=== PATIENT | male | born 1935 | race Caucasian/White ===

== ENCOUNTER 2018-07-02 09:25 | Emergency (ER) | payer MEDICARE, OTHER ==
[~2018-07-02] VITALS: Ht 653.8 cm; Wt 55.0 kg
[2018-07-02 09:51] LABS: BASOPHILS % (AUTO) 0.4 % (0-1); EOSINOPHILS # (AUTO) 1.7 X10'3 (0-0.9); EOSINOPHILS % (AUTO) 22.9 % (0-6); HEMATOCRIT 41.1 % (42.0-52.0); HEMOGLOBIN 13.7 g/dl (14.0-17.9); LYMPHOCYTES # (AUTO) 1.1 X10'3 (1.1-4.8); LYMPHOCYTES % (AUTO) 14.4 % (21-51); MEAN CORPUSCULAR HEMOGLOBIN 31.1 PG (27.0-31.0); MEAN CORPUSCULAR HGB CONC 33.2 % (33.0-36.5); MEAN CORPUSCULAR VOLUME 93.7 FL (78-98); MEAN PLATELET VOLUME 7.2 FL (7.4-10.4); MONOCYTES # (AUTO) 0.5 X10'3 (0-0.9); MONOCYTES % (AUTO) 7.1 % (2-12); NEUTROPHILS # (AUTO) 4.1 X10'3 (1.8-7.7); NEUTROPHILS % (AUTO) 55.2 % (42-75); PLATELET COUNT 304 X10'3 (140-440); RED BLOOD COUNT 4.39 X10'6 (4.70-6.10); WHITE BLOOD COUNT 7.4 X10'3 (4.5-11.0)
[2018-07-02 10:01] LABS: PARTIAL THROMBOPLASTIN TIME 25 SECONDS (22-32); PROTHROMBIN TIME 10.2 SECONDS (9.0-12.0)
[2018-07-02 10:07] LABS: ALANINE AMINOTRANSFERASE 174 U/L (12-78); ALBUMIN 3.1 G/DL (3.4-5.0); ALBUMIN/GLOBULIN RATIO 0.8 (1.1-1.5); ALKALINE PHOSPHATASE 96 IU/L (46-116); ANION GAP 9 (8-16); ASPARTATE AMINO TRANSFERASE 177 U/L (10-37); BILIRUBIN,TOTAL 0.4 MG/DL (0.1-1.0); BLOOD UREA NITROGEN 17 MG/DL (7-18); BUN/CREATININE RATIO 11.9 (5.4-32.0); CALCIUM 9.5 MG/DL (8.5-10.1); CHLORIDE 106 MMOL/L (99-107); CREATININE 1.43 MG/DL (0.60-1.10); GLUCOSE 123 MG/DL (70-104); POTASSIUM 4.1 MMOL/L (3.5-5.1); SODIUM 142 MMOL/L (135-145); TOTAL CARBON DIOXIDE 26.7 MMOL/L (24-32); TOTAL PROTEIN 6.9 G/DL (6.4-8.2); eGFR 47 ML/MIN
[2018-07-02 14:42] VITALS: BP 105/57
== END 2018-07-02 14:44 | disposition home or self-care (01) ==
LOC: ER 09:25
DX: J93.83 Other pneumothorax (principal); Z95.810 Presence of automatic (implantable) cardiac defibrillator
CPT/HCPCS: 36415; 71045; 80053; 83880; 84484; 85025; 85610; 85730; 93005; 99285

== ENCOUNTER 2021-09-10 11:27 | Day surgery (SDC) | payer OTHER ==
[2021-09-05 10:45] LABS: EOSINOPHILS # (AUTO) 0.1 X10'3 (0-0.9); EOSINOPHILS % (AUTO) 2.3 % (0-6); HEMATOCRIT 36.6 % (42.0-52.0); HEMOGLOBIN 12.3 g/dl (14.0-17.9); LYMPHOCYTES # (AUTO) 1.2 X10'3 (1.1-4.8); MEAN CORPUSCULAR HEMOGLOBIN 31.9 PG (27.0-31.0); MEAN CORPUSCULAR HGB CONC 33.5 g/dL (33.0-36.5); MEAN CORPUSCULAR VOLUME 95.2 FL (78-98); MEAN PLATELET VOLUME 6.9 FL (7.4-10.4); MONOCYTES # (AUTO) 0.8 X10'3 (0-0.9); MONOCYTES % (AUTO) 16.5 % (2-12); NEUTROPHILS # (AUTO) 2.6 X10'3 (1.8-7.7); NEUTROPHILS % (AUTO) 54.2 % (42-75); PLATELET COUNT 258 X10'3 (140-440); RED BLOOD COUNT 3.85 X10'6 (4.70-6.10); RED CELL DISTRIBUTION WIDTH 13.2 % (11.5-14.5); WHITE BLOOD COUNT 4.8 X10'3 (4.5-11.0)
[2021-09-05 10:53] LABS: ALBUMIN 3.5 G/DL (3.4-5.0); ANION GAP 9 (8-16); BLOOD UREA NITROGEN 31 MG/DL (7-18); BUN/CREATININE RATIO 15.8 (5.4-32.0); CALCIUM 8.6 MG/DL (8.5-10.1); CHLORIDE 110 MMOL/L (99-107); CREATININE 1.96 MG/DL (0.60-1.10); GLUCOSE 97 MG/DL (70-104); POTASSIUM 4.7 MMOL/L (3.5-5.1); SODIUM 140 MMOL/L (135-145); TOTAL CARBON DIOXIDE 21.1 MMOL/L (24-32); eGFR 33 ML/MIN
[2021-09-05 10:55] LABS: PARTIAL THROMBOPLASTIN TIME 28 SECONDS (22-32)
[2021-09-05 11:22] LABS: PLATELET ESTIMATE NORMAL; TOTAL CELLS COUNTED 100
[~2021-09-10] VITALS: Ht 200.7 cm; Wt 77.1 kg
[2021-09-10] VITALS (10 sets, daily range): BP systolic 90–121; BP diastolic 51–80
[2021-09-10] MEDS ORDERED: diphenhydrAMINE 25mg capsule PO PRN (11:55)
[2021-09-10] MEDS ORDERED: normal saline 1,000 ML IV SCH (11:55)
[2021-09-10] MEDS ORDERED: LORazepam 0.5 MG tablet PO PRN (11:55)
[2021-09-10] MEDS ORDERED: BUPR-122 PO (12:04)
[2021-09-10] MEDS ORDERED: FLO0.4C PO (12:04)
[2021-09-10] MEDS ORDERED: LEVO50TA8 PO (12:04)
[2021-09-10] MEDS ORDERED: LISI10TA27 PO (12:04)
[2021-09-10] MEDS ORDERED: CHOL10006 PO (12:04)
[2021-09-10] MEDS ORDERED: EVOL140P3 SUBCUT (12:04)
[2021-09-10] MEDS ORDERED: ASPI-1265 PO (12:04)
[2021-09-10] MEDS ORDERED: METO100T7 PO (12:04)
[2021-09-10] MEDS ORDERED: ACET-1995 PO (12:04)
[2021-09-10] MEDS ORDERED: nitroGLYCERIN-Tridil 50MG/D5W 250 ML IV ONE (13:29)
[2021-09-10] MEDS ORDERED: midazolam 1 mg/ML 2ml injection ONE (13:30)
[2021-09-10] MEDS ORDERED: fentaNYL/PF 50MCG/1 ML 2ML syringe ONE (13:30)
[2021-09-10] MEDS ORDERED: heparin 1,000unit/ml 10ml vial 10 ML ONE (13:30)
[2021-09-10] MEDS ORDERED: verapamil 2.5 mg/ml inj IV ONE (13:30)
[2021-09-10] MEDS ORDERED: LIDOcaine 1% (10mg/ml)w/preservative injection 20ml MDV ONE (13:30)
[2021-09-10] MEDS ORDERED: iohexol 350MG/ML 100ml bottle IV ONE (13:32)
[2021-09-10] MEDS ORDERED: iohexol 350 MG/ML 50ML vial IV ONE (14:26)
[2021-09-10] MEDS ORDERED: OXAZEpam 15mg capsule PO PRN (15:15)
[2021-09-10] MEDS ORDERED: proCHLORperazine 10 MG/2 ml inj IV PRN (15:15)
[2021-09-10] MEDS ORDERED: ondansetron/PF 4mg/2ml inj IV PRN (15:15)
== END 2021-09-10 17:55 | disposition home or self-care (01) ==
LOC: SSTAY O 11:27
PROVIDERS: ATTEND Internal Medicine Interventional Cardiology
DX: R07.89 Other chest pain (principal); I25.810 Atherosclerosis of coronary artery bypass graft(s) without angina pectoris; I48.91 Unspecified atrial fibrillation; E03.9 Hypothyroidism, unspecified; I42.9 Cardiomyopathy, unspecified; E78.5 Hyperlipidemia, unspecified; Z79.899 Other long term (current) drug therapy; Z79.82 Long term (current) use of aspirin; Z87.891 Personal history of nicotine dependence; Z88.8 Allergy status to other drugs, medicaments and biological substances
CPT/HCPCS: 36415; 80048; 85025; 85610; 85730; 93005; 93459; 99152; C1760; C1769; C1894; J1644; J2001; J2250; J3010; Q9967; 85007; A4620; A5120; A6258; J3490